=== PATIENT | male | born 1950 | race Caucasian/White ===

== ENCOUNTER 2019-01-07 11:59 | Outpatient (CLI) | payer MEDICARE, OTHER ==
--- NOTE | 2019-01-07 15:08 | XRAY Report ---
Reason: L MIDDLE TOE PAIN Procedure Date: 01/07/2019 Accession Number: [id number] / [id number] Procedure: XR - Toe(s) LT CPT Code: FULL RESULT: EXAM: LEFT THIRD TOE RADIOGRAPHY. EXAM DATE: 01/07/2019 12:05 PM. CLINICAL HISTORY: Left middle toe pain. COMPARISON: None. TECHNIQUE: 3 views. FINDINGS: Bones: There is a fracture of the proximal aspect of the proximal third phalanx with intra-articular extension, essentially nondisplaced. Joints: Normal. No subluxations. Soft Tissues: Normal. No soft tissue swelling. IMPRESSION: Proximal third toe fracture. [facility] The call report notification system was initiated by Dr. Sunil Pierce at 03:02 PM on 01/07/2019. ADDENDUM: 01/07/19 15:57 CRITICAL RESULT: The findings were discussed with Dante Bolanos on 01/07/2019 at 3:57 PM.
== END 2019-01-07 12:00 | disposition home or self-care (01) ==
LOC: DI 11:59
PROVIDERS: ATTEND Physician Assistant
DX: S92.512A Displaced fracture of proximal phalanx of left lesser toe(s), initial encounter for closed fracture (principal)
CPT/HCPCS: 73660

== ENCOUNTER 2019-08-07 11:26 | Outpatient (CLI) | payer MEDICARE, OTHER | END 2019-08-07 11:27 | disposition short-term general hospital (02) | LOC: EMS 11:26 | PROVIDERS: ATTEND Surgery | DX: S99.911A Unspecified injury of right ankle, initial encounter (principal); W01.0XXA Fall on same level from slipping, tripping and stumbling without subsequent striking against object, initial encounter; Y93.02 Activity, running; Y92.007 Garden or yard of unspecified non-institutional (private) residence as the place of occurrence of the external cause | CPT/HCPCS: A0425; A0429; A0888 ==

== ENCOUNTER 2020-01-01 09:35 | Outpatient (CLI) | payer MEDICARE, OTHER ==
--- NOTE | 2020-01-01 16:18 | XRAY Report ---
Reason: COPD, HEART FAILURE Procedure Date: 01/01/2020 Accession Number: [id number] / [id number] Procedure: XR - Chest 2 View X-Ray CPT Code: 07740 Final Report FULL RESULT: EXAM: CHEST RADIOGRAPHY EXAM DATE: 01/01/2020 09:47 AM. CLINICAL HISTORY: COPD, HEART FAILURE. Shortness of breath. COMPARISON: XR CHEST PA AND LAT 03/31/2010 8:34 AM. TECHNIQUE: 2 views. FINDINGS: Lungs/Pleura: No focal opacities evident. No interstitial abnormality or pulmonary vascular congestion. No pleural effusion. No pneumothorax. Normal volumes. Mediastinum: Heart and mediastinal contours are unremarkable. Sternotomy wires revised since 2009. Vessel markers consistent with CABG. Left atrial appendage clip now present. Mild aortic arch calcification. Other: Minimally displaced fractures of the posterolateral right fourth and fifth ribs, new since 2009. Moderate chronic bilateral shoulder arthritis. IMPRESSION: 1. Lungs are clear. 2. Heart size normal. Redo median sternotomy, CABG, left atrial appendage closure, new since 2009. 3. Minimally displaced fractures of the posterior lateral right fourth and fifth ribs, new since 2009. [facility]
== END 2020-01-01 09:36 | disposition home or self-care (01) ==
LOC: DI 09:35
PROVIDERS: ATTEND Internal Medicine
DX: S22.41XA Multiple fractures of ribs, right side, initial encounter for closed fracture (principal); Z95.1 Presence of aortocoronary bypass graft
CPT/HCPCS: 71046

== ENCOUNTER 2021-03-03 08:00 | Outpatient (CLI) | payer MEDICARE, OTHER | END 2021-03-03 23:59 | disposition home or self-care (01) | LOC: LAB.N 08:00 | PROVIDERS: ATTEND Physician Assistant Medical | DX: L02.92 Furuncle, unspecified (principal) | CPT/HCPCS: 87070; 87077; 87181; 87205 ==

== ENCOUNTER 2021-11-21 13:04 | Outpatient (CLI) | payer MEDICARE, OTHER ==
--- NOTE | 2021-11-21 16:32 | XRAY Report ---
PROCEDURE: Lumbar Spine 2 View INDICATIONS: LOW BACK PX TECHNIQUE: 3 views of the lumbar spine were acquired. COMPARISON: None. FINDINGS: Bones: 5 [id number] vertebrae are present. Diffuse osteopenia. Levocurvature of the lumbar spin e with multiple compression deformities and endplate osteophytosis. Facet arthrosis, most prominent a t L4-5. The L5-S1 joint space is maintained. Bilateral hip arthroplasties are seen, partially imaged. Soft tissues: Overlying bowel gas pattern is normal. No suspicious soft tissue calcifications. IMPRESSION: Levocurvature of the lumbar spine, which may reflect degenerative scoliosis with associa yuly multifocal osteoarthrosis. Reviewed by: Josh Mckee MD on 11/21/2021 4:31 PM PDT Approved by: Josh Mckee MD on 11/21/2021 4:31 PM PDT Station ID: [id number]
--- NOTE | 2021-11-21 18:03 | XRAY Report ---
PROCEDURE: Hips 2V BILAT INDICATIONS: R HIP PX TECHNIQUE: 2 views of the right hip and left hip were acquired. COMPARISON: None FINDINGS: Bones: Bilateral hip arthroplasties noted. Orthopedic hardware is in expected position. Orthopedic h ardware is intact lucency noted adjacent to the proximal margin of the femoral component of the right hip arthroplasty. No fractures or dislocations. No suspicious bony lesions. The visualized pelvic ring appears intact. Severe lower lumbar spine degenerative disc changes. Convex left scoliosis of th e visualized lumbar spine. Soft tissues: No suspicious soft tissue calcifications or masses. IMPRESSION: Lucency at the proximal margin of the femoral component of the right hip arthroplasty. Finding could represent loosening or infection. Recommend nuclear medicine bone scan for additional evaluation. Reviewed by: Francine Shepard MD, PhD on 11/21/2021 6:02 PM PDT Approved by: Francine Shepard MD, PhD on 11/21/2021 6:02 PM PDT Station ID: [id number]
== END 2021-11-21 23:59 | disposition home or self-care (01) ==
LOC: DI.N 13:04
PROVIDERS: ATTEND Physician Assistant Medical
DX: M47.816 Spondylosis without myelopathy or radiculopathy, lumbar region (principal); M41.9 Scoliosis, unspecified; Z96.643 Presence of artificial hip joint, bilateral; M25.551 Pain in right hip

== ENCOUNTER 2023-03-15 11:17 | Outpatient (CLI) | payer MEDICARE, OTHER ==
--- NOTE | 2023-03-15 12:59 | XRAY Report ---
PROCEDURE: Chest 2 View X-Ray INDICATIONS: SOB TECHNIQUE: 2 views of the chest were acquired. COMPARISON: Chest x-ray, 01/01/2020. FINDINGS: Surgical changes and devices: Sternotomy and CABG. Lungs and pleura: No pleural effusions or pneumothorax. Lungs are clear. Mediastinum: Mediastinal contours appear normal. Heart size is normal. Bones and chest wall: Old right fourth and fifth rib fractures are noted Bilateral shoulder arthropl asties. No suspicious bony lesions. Overlying soft tissues appear unremarkable. IMPRESSION: No acute cardiopulmonary process. Reviewed by: Mamadou Soto MD on 03/15/2023 12:57 PM PDT Approved by: Mamadou Soto MD on 03/15/2023 12:57 PM PDT Station ID: [id number]
== END 2023-03-15 11:18 | disposition home or self-care (01) ==
LOC: DI 11:17
PROVIDERS: ATTEND Student in an Organized Health Care Education/Training Program
DX: R06.02 Shortness of breath (principal)

== ENCOUNTER 2023-04-19 10:45 | Outpatient (CLI) | payer MEDICARE, OTHER ==
[2023-04-19] MEDS ORDERED: ALBUTEROL 1 PUFF INH STA (12:25)
== END 2023-04-19 10:46 | disposition home or self-care (01) ==
LOC: RT 10:45
PROVIDERS: ATTEND Student in an Organized Health Care Education/Training Program
DX: R06.02 Shortness of breath (principal)
CPT/HCPCS: 94060; 94727; 94729

== ENCOUNTER 2023-05-12 08:00 | Outpatient (CLI) | payer MEDICARE, OTHER | END 2023-05-12 23:59 | disposition home or self-care (01) | LOC: LAB.N 08:00 | PROVIDERS: ATTEND Registered Nurse | DX: R05.1 Acute cough (principal); Z20.822 Contact with and (suspected) exposure to COVID-19 ==

== ENCOUNTER 2023-06-29 19:27 | Emergency (ER) | payer MEDICARE, OTHER ==
[2023-06-29 20:00] LABS: BASOPHILS # (AUTO) 0.1 10^3/uL (0.0-0.1); BASOPHILS % (AUTO) 0.5 %; EOSINOPHILS # (AUTO) 0.1 10^3/uL (0.0-0.7); EOSINOPHILS % (AUTO) 0.7 %; HGB - HEMOGLOBIN 10.3 g/dL (14.0-18.0); LYMPHOCYTES # (AUTO) 0.8 10^3/uL (1.5-3.5); LYMPHOCYTES % (AUTO) 5.1 %; MEAN CORPUSCULAR HGB CONC 31.2 g/dL (32.0-36.0); MEAN CORPUSCULAR VOLUME 86.6 fL (80.0-94.0); MEAN PLATELET VOLUME 10.2 fL (7.4-11.4); MONOCYTES # (AUTO) 0.9 10^3/uL (0.0-1.0); MONOCYTES % (AUTO) 6.1 %; NEUTROPHILS # (AUTO) 13.1 10^3/uL (1.5-6.6); NEUTROPHILS % (AUTO) 86.9 %; PLT - PLATELET COUNT 149 10^3/uL (130-450); RED BLOOD COUNT 3.81 10^6/uL (4.70-6.10); RED CELL DISTRIBUTION WIDTH 14.3 % (12.0-15.0)
[2023-06-29 20:17] LABS: ALBUMIN 3.7 g/dL (3.2-5.5); ALBUMIN/GLOBULIN RATIO 1.1 (1.0-2.2); BILIRUBIN,TOTAL 0.9 mg/dL (0.2-1.0); CALCIUM 9.3 mg/dL (8.5-10.3); CREATININE 0.8 mg/dL (0.6-1.3); POTASSIUM 4.4 mmol/L (3.5-4.5)
--- NOTE | 2023-06-29 20:22 | XRAY Report ---
PROCEDURE: Chest 1 View X-Ray INDICATIONS: Chest pain TECHNIQUE: One view of the chest was acquired. COMPARISON: 05/22/2023 FINDINGS: Surgical changes and devices: Median sternotomy changes. Left atrial occluder device. Bilateral shou lder arthroplasties. Lungs and pleura: Mild right infrahilar mixed interstitial and alveolar opacity. No dense consolidat ion, effusion, or pneumothorax. Mediastinum: Heart is moderately enlarged, similar compared to prior given changes in projection. No rmal aortic contour. No central vascular congestion. Bones and chest wall: Remote, healed right rib fractures. Soft tissues are normal. IMPRESSION: 1. Small right infrahilar alveolar opacity may be infection, inflammation, aspiration, or anemia give n patient's stated history of pulmonary embolus. 2. Cardiomegaly. No radiographic evidence of acute CHF. Reviewed by: Candie Schwartz MD on 06/29/2023 8:20 PM PDT Approved by: Candie Schwartz MD on 06/29/2023 8:20 PM PDT Station ID: [id number]
--- NOTE | 2023-06-29 20:41 | ED Physician Documentation ---
History of Present Illness - Stated complaint Stated Complaint: SOA/FU FROM SCAN - Chief complaint Chief Complaint: Resp - History obtained from History obtained from: Patient, Family () - Additonal information Additional information: 73-year-old man presents sent in after having a scheduled CT a of the chest that showed right-sided pulmonary embolism. Patient has documentation at bedside. He also has been experiencing subjective shortness of breath gradual onset over the past couple days along with nonproductive cough but denies URI symptoms. Patient had echocardiogram 2 weeks ago at [facility] with a EF of 60% and denies leg swelling, pillow orthopnea. +DEGROOT. denies cp PD PAST MEDICAL HISTORY - Past Medical History Cardiovascular: High cholesterol, Coronary artery disease, Arrhythmia, Valve disorder Musculoskeletal: Chronic back pain - Past Surgical History Past Surgical History: Yes Ortho: Hip replacement, Shoulder arthroplasty, Carpal Tunnel surgery Cardiovascular: Valve replacement, Other - Present Medications Home Medications: Ambulatory Orders Medication Instructions Recorded Confirmed Rivaroxaban [Xarelto] 15 mg PO BID #42 tablet 06/29/23 - Allergies Allergies/Adverse Reactions: Allergies Allergy/AdvReac Type Severity Reaction Status Date / Time amiodarone AdvReac Dizziness Verified 06/29/23 19:37 etomidate AdvReac Unknown Verified 06/29/23 19:37 - Social History Does the pt smoke?: No Smoking Status: Never smoker Does the pt drink ETOH?: No Does the pt have substance abuse?: No PD ED PE NORMAL - Vitals Vital signs reviewed: Yes - General General: Alert and oriented X 3, No acute distress, Well developed/nourished - HEENT HEENT: Atraumatic, PERRL, EOMI, Moist mucous membranes, Pharynx benign - Neck Neck: Supple, no meningeal sign - Cardiac Cardiac: RRR - Respiratory Respiratory: No respiratory distress, Clear bilaterally - Abdomen Abdomen: Non tender, Non distended - Derm Derm: Normal color, Warm and dry - Extremities Extremities: No edema - Neuro Neuro: No motor deficit, No sensory deficit Results - Vitals Vitals: Vital Signs - 24 hr 06/29/23 06/29/23 06/29/23 19:33 19:37 20:01 Temperature 36.7 C 36.7 C Heart Rate 79 79 76 Respiratory 26 H 26 H 19 Rate Blood Pressure 123/78 123/78 124/74 O2 Saturation 97 97 92 Oxygen O2 Source Room air - EKG (time done) 1958 EKG releavant findings:: EKG personally interpreted by author of this note. Relevant findings are: Rate: Rate (enter#) (75) Rhythm: NSR (respiratory variation) [place]: Normal Intervals: Normal IN QRS: Poor R wave progression Ischemia: Other (nonspecific changes but no STEMI) Compare to prior EKG: Unchanged from prior EKG (06/01/23 similar ekg) - Labs Labs: Microbiology 06/29/23 21:03 Occult Blood - Final Stool Laboratory Tests 06/29/23 06/29/23 06/29/23 19:45 19:57 19:57 WBC 15.0 H RBC 3.81 L Hgb 10.3 L Hct 33.0 L MCV 86.6 MCH 27.0 MCHC 31.2 L RDW 14.3 Plt Count 149 MPV 10.2 Neut # (Auto) 13.1 H Lymph # (Auto) 0.8 L [place] # (Auto) 0.9 Eos # (Auto) 0.1 Baso # (Auto) 0.1 Absolute Nucleated RBC 0.00 Nucleated RBC % 0.0 Sodium 134 L Potassium 4.4 Chloride 100 L Carbon Dioxide 27 Anion Gap 7.0 BUN 23 H Creatinine 0.8 Estimated GFR (MDRD) 94 Glucose 143 H Calcium 9.3 Total Bilirubin 0.9 AST 19 ALT 23 Alkaline Phosphatase 143 H Troponin I High Sens 10.5 B-Natriuretic Peptide 603 H Total Protein 7.0 Albumin 3.7 Globulin 3.3 Albumin/Globulin Ratio 1.1 Lipase 12 PD Medical Decision Making - ED course ED course: 73yM presents with soa X couple days with CT outpatient diagnosing R sided PE. PESI score here is 85 (class II, low risk) due to age and gender. Plan to administer first dose of anticoagulant here and have him follow up outpatient for echocardiogram and further management with CT surgeon and pulmonology. return precautions given. Departure - Departure Disposition: 01 Home, Self Care Clinical Impression: Pulmonary embolism Condition: Stable Instructions: Embolism Pulmonary Dc Prescriptions: Rivaroxaban [Xarelto] 15 mg PO BID #42 tablet Comments: You were seen in the emergency department for Pulmonary embolism. I am prescribing Xarelto 15 mg twice daily with meals for 3 weeks. After this she will need to get a new prescription for 20 mg once daily with food thereafter. Please follow-up with your cardiothoracic specialist as well as pulmonology and return to the emergency department if you have any new or worsening symptoms or other concerns. Forms: PCP List
[2023-06-29 20:53] LABS: TROPONIN I HIGH SENSITIVITY 10.5 ng/L (2.3-19.7)
[2023-06-29] MEDS ORDERED: ENOXAPARIN 80 MG/0.8 ML SYRINGE SUBQ STA (21:58)
[2023-06-29 22:13] VITALS: BP 120/72; O2SAT 94
== END 2023-06-29 22:12 | disposition home or self-care (01) ==
LOC: ED 19:27
DX: I26.99 Other pulmonary embolism without acute cor pulmonale (principal)
CPT/HCPCS: 36415; 71045; 80053; 82272; 83690; 83880; 84484; 85025; 93005; 96372; 99284; J1650; 82270; 82274

== ENCOUNTER 2023-07-16 11:52 | Emergency (ER) | payer MEDICARE, OTHER ==
[2023-07-16 12:44] LABS: BASOPHILS # (AUTO) 0.1 10^3/uL (0.0-0.1); BASOPHILS % (AUTO) 0.4 %; EOSINOPHILS % (AUTO) 0.1 %; HCT - HEMATOCRIT 30.9 % (42.0-52.0); HGB - HEMOGLOBIN 9.4 g/dL (14.0-18.0); LYMPHOCYTES # (AUTO) 0.6 10^3/uL (1.5-3.5); LYMPHOCYTES % (AUTO) 4.5 %; MEAN CORPUSCULAR HEMOGLOBIN 25.9 pg (27.0-31.0); MEAN CORPUSCULAR HGB CONC 30.4 g/dL (32.0-36.0); MEAN CORPUSCULAR VOLUME 85.1 fL (80.0-94.0); MEAN PLATELET VOLUME 9.5 fL (7.4-11.4); MONOCYTES # (AUTO) 0.6 10^3/uL (0.0-1.0); MONOCYTES % (AUTO) 4.4 %; NEUTROPHILS # (AUTO) 12.8 10^3/uL (1.5-6.6); NEUTROPHILS % (AUTO) 89.6 %; PLT - PLATELET COUNT 197 10^3/uL (130-450); RED BLOOD COUNT 3.63 10^6/uL (4.70-6.10); RED CELL DISTRIBUTION WIDTH 15.9 % (12.0-15.0); WHITE BLOOD COUNT 14.2 x10^3/uL (4.8-10.8)
[2023-07-16 12:55] LABS: INR 3.6 (0.8-1.2); PT - PROTHROMBIN TIME 36.7 secs (9.9-12.6)
--- NOTE | 2023-07-16 13:11 | XRAY Report ---
PROCEDURE: Chest 1 View X-Ray INDICATIONS: dyspnea TECHNIQUE: One view of the chest was acquired. COMPARISON: Chest x-ray 06/29/2023 FINDINGS: Surgical changes and devices: Bilateral shoulder arthroplasty and sternal wires. Lungs and pleura: Interval development of moderate right effusion. Linear opacities are present in t he right base. Mild increased pulmonary vascularity. Mediastinum: Mediastinal contours appear normal. Heart size is enlarged. Bones and chest wall: No suspicious bony lesions. Overlying soft tissues appear unremarkable. IMPRESSION: Moderate effusion with increased vascular suggestive of edema. Underlying areas of pneumonia or other mass lesion cannot be excluded. Recommend interval follow-up to document resolution. Linear opacity is present likely atelectasis. Reviewed by: Romina Montoya MD on 07/16/2023 1:10 PM [facility] Approved by: Romina Montoya MD on 07/16/2023 1:10 PM [facility] Station ID: [id number]
[2023-07-16 13:15] LABS: ALBUMIN 3.1 g/dL (3.2-5.5); ALBUMIN/GLOBULIN RATIO 0.9 (1.0-2.2); BILIRUBIN,TOTAL 1.7 mg/dL (0.2-1.0); CALCIUM 8.8 mg/dL (8.5-10.3); CREATININE 0.7 mg/dL (0.6-1.3); PHOSPHORUS 3.1 mg/dL (2.5-5.0); POTASSIUM 4.1 mmol/L (3.5-4.5); TOTAL PROTEIN 6.5 g/dL (6.4-8.9)
[2023-07-16] MEDS: MORPHINE 2 MG/ML CARPUJECT IVP STA (13:33)
--- NOTE | 2023-07-16 14:17 | ED Physician Documentation ---
PD HPI DYSPNEA - Stated complaint Stated Complaint: SOA - Chief complaint Chief Complaint: Resp - History obtained from History obtained from: Patient, Family, Other (Dr. 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 Patient developed difficulty with breathing in April 2023, he was seen by cardiology, underwent PFTs that were unremarkable. Patient subsequently underwent cardiac work-up including right and left heart cath, echocardiogram. CT revealed right lower lobe PE on 06/29 and he was started on anticoagulation. Today the hospice doctor Dr. Ku evaluated the patient, he was found to be hypoxic on his usual 3 L oxygen and he was increased to 5 L oxygen. He was also complaining of back pain and worsening shortness of breath with movement. Patient elected to remove his hospice status in order to be evaluated in the hospital today. Review of Systems Constitutional: denies: Fever, Chills Cardiac: denies: Chest pain / pressure, Palpitations, Calf pain Respiratory: reports: Dyspnea. denies: Cough, Wheezing GI: denies: Abdominal Pain, Nausea, Vomiting : denies: Dysuria, Frequency, Hesitancy PD PAST MEDICAL HISTORY - Past Medical History Cardiovascular: High cholesterol, Coronary artery disease, Arrhythmia, Valve disorder Musculoskeletal: Chronic back pain - Past Surgical History Past Surgical History: Yes Ortho: Hip replacement, Shoulder arthroplasty, Carpal Tunnel surgery Cardiovascular: Valve replacement, Other - Present Medications Home Medications: Ambulatory Orders Medication Instructions Recorded Confirmed Amox/Clav 875/125 [Augmentin] 1 each PO Q12H #10 tablet 07/16/23 Digoxin [Lanoxin] 125 mcg PO ONCE 07/16/23 07/16/23 Dofetilide [Tikosyn] 500 mcg PO DAILY 07/16/23 07/16/23 Doxycycline Hyclate 100 mg PO BID #10 cap 07/16/23 - Allergies Allergies/Adverse Reactions: Allergies Allergy/AdvReac Type Severity Reaction Status Date / Time amiodarone AdvReac Dizziness Verified 06/29/23 19:37 etomidate AdvReac Unknown Verified 06/29/23 19:37 - Social History Does the pt smoke?: No Smoking Status: Never smoker Does the pt drink ETOH?: No Does the pt have substance abuse?: No PD ED PE NORMAL - Vitals Vital signs reviewed: Yes - General General: Alert and oriented X 3, Other (Appears chronically unwell, mild r espiratory distress) - HEENT HEENT: Atraumatic - Neck Neck: Supple, no meningeal sign - Cardiac Cardiac: RRR, Strong equal pulses - Respiratory Respiratory: Other (Mild respiratory distress, pursed lip breathing, on supplemental oxygen, decreased breath sounds right side) - Derm Derm: Normal color, Warm and dry, No rash - Extremities Extremities: No deformity, No tenderness to palpate, Normal ROM s pain - Neuro Neuro: Alert and oriented X 3, soap chipper 2-12 intact, Normal speech - Psych Psych: Normal mood Results - Vitals Vitals: Vital Signs - 24 hr 07/16/23 07/16/23 07/16/23 11:58 14:02 16:00 Temperature 36 C L Heart Rate 119 H 85 89 Respiratory 30 H 14 16 Rate Blood Pressure 147/82 H 108/82 H 109/86 H O2 Saturation 98 98 96 If not protocol 5 5 : Oxygen Flow, liters/minute 07/16/23 17:00 Temperature Heart Rate 83 Respiratory 16 Rate Blood Pressure 108/79 O2 Saturation 100 If not protocol 5 : Oxygen Flow, liters/minute Oxygen O2 Source Nasal cannula Oxygen Flow Rate 5 - Labs Labs: Laboratory Tests 07/16/23 07/16/23 07/16/23 12:39 12:39 12:39 WBC 14.2 H RBC 3.63 L Hgb 9.4 L Hct 30.9 L MCV 85.1 MCH 25.9 L MCHC 30.4 L RDW 15.9 H Plt Count 197 MPV 9.5 Neut # (Auto) 12.8 H Lymph # (Auto) 0.6 L [place] # (Auto) 0.6 Eos # (Auto) 0.0 Baso # (Auto) 0.1 Absolute Nucleated RBC 0.00 Nucleated RBC % 0.0 PT 36.7 H INR 3.6 H Sodium 129 L Potassium 4.1 Chloride 92 L Carbon Dioxide 30 Anion Gap 7.0 BUN 16 Creatinine 0.7 Estimated GFR (MDRD) 110 Glucose 120 H Calcium 8.8 Phosphorus 3.1 Magnesium 2.0 Total Bilirubin 1.7 H AST 35 ALT 39 Alkaline Phosphatase 153 H Total Protein 6.5 Albumin 3.1 L Globulin 3.4 Albumin/Globulin Ratio 0.9 L Lipase 23 Urine Color Urine Clarity Urine pH Ur Specific [place] Urine Protein Urine Glucose (UA) Urine Ketones Urine Occult Blood Urine Nitrite Urine Bilirubin Urine Urobilinogen Ur Leukocyte Esterase Urine RBC Urine WBC Ur Squamous Epith Cells Urine Bacteria Urine Mucus Ur Microscopic Review Urine Culture Comments 07/16/23 16:10 WBC RBC Hgb Hct MCV MCH MCHC RDW Plt Count MPV Neut # (Auto) Lymph # (Auto) [place] # (Auto) Eos # (Auto) Baso # (Auto) Absolute Nucleated RBC Nucleated RBC % PT INR Sodium Potassium Chloride Carbon Dioxide Anion Gap BUN Creatinine Estimated GFR (MDRD) Glucose Calcium Phosphorus Magnesium Total Bilirubin AST ALT Alkaline Phosphatase Total Protein Albumin Globulin Albumin/Globulin Ratio Lipase Urine Color YELLOW Urine Clarity HAZY Urine pH 7.5 Ur Specific [place] 1.010 Urine Protein TRACE Urine Glucose (UA) NEGATIVE Urine Ketones NEGATIVE Urine Occult Blood NEGATIVE Urine Nitrite NEGATIVE Urine Bilirubin NEGATIVE Urine Urobilinogen 1 (NORMAL) Ur Leukocyte Esterase NEGATIVE Urine RBC 0-5 Urine WBC 0-3 Ur Squamous Epith Cells RARE Squamous Urine Bacteria Rare Urine Mucus Few Strands Ur Microscopic Review INDICATED Urine Culture Comments NOT INDICATED PD Medical Decision Making - ED course Complexity details: reviewed old records, reviewed results, re-evaluated patient, considered differential, d/w patient, d/w family, d/w bi consultant ED course: Patient previously on hospice presenting for back pain as well as worsening shortness of breath. He is having to increase his oxygen to 5 L in order to maintain his saturations as well as a chief comfort. Patient Dr. Ku is concerned there may be a metastatic lesion somewhere, in addition with patient's recent history of pulmonary embolism will order CT angio of the chest as well as CT of the abdomen and pelvis. Laboratory work is reviewed, hyponatremia seen. INR is elevated despite patient taking Eliquis. Chest x-ray shows moderate right-sided pleural effusion. CT angio of the chest as well as CT of the abdomen and pelvis are significant for a moderate right-sided pleural effusion. There is underlying right-sided consolidative lesion, cannot rule out pneumonia based on presentation and clinical picture. Discussed with Dr. Ku, due to patient's elevated INR he is not a candidate for thoracentesis here, however it may be of palliative benefit in the future. She will discuss possibility of thoracentesis in the future with the patient and his . She also recommended that the patient be empirically treated with antibiotics since pneumonia cannot be ruled out and may provide some therapeutic benefit to the patient. Discussed lab, imaging, Dr. Ku recommendations with the patient and the . They are in agreement w ith plan and will call Dr. Ku tomorrow for follow-up. Departure - Departure Disposition: Home, Self Care Clinical Impression: Pneumonia, Pleural effusion Condition: Stable Instructions: Pneumonia Dc Prescriptions: Amox/Clav 875/125 [Augmentin] 1 each PO Q12H #10 tablet Doxycycline Hyclate 100 mg PO BID #10 cap Comments: [facility] SENT [facility] Forms: PCP List Discharge Date/Time: 07/16/23 17:19
[2023-07-16] MEDS: iohexoL-300 100 ML VIAL IVP ONE (15:30)
--- NOTE | 2023-07-16 15:41 | CT Report ---
PROCEDURE: ANGIO CHEST W/WO INDICATIONS: WORSENING DYSPNEA, HX OF PE CONTRAST: 100mL Omni 300 TECHNIQUE: After the administration of intravenous contrast, 2 mm axial images were acquired from the pulmonary apices to the posterior costophrenic angles during the arterial phase. In addition, 1 mm lung kernel and 5 mm soft tissue kernel reconstructions were performed. 3-dimensional coronal oblique maximum int ensity projection (MIP) reformats, 8 mm axial MIP, and 5 mm coronal and sagittal MPR reformats were t hen performed through the thorax. For radiation dose reduction, the following was used: automated exp osure control, adjustment of mA and/or kV according to patient size. COMPARISON: CT pulmonary angiogram 06/01/2023. FINDINGS: Image quality: Excellent. Large vessels: No filling defects within the opacified pulmonary arteries, accounting for motion and contrast timing. No evidence of acute aortic syndrome or aortic aneurysm. Lungs and pleura: Scattered opacity in the right lung. Airways are clear. Moderate right pleural effu ceci, increased. Trace left pleural fluid. No pneumothorax. No suspicious pulmonary nodules which req uire follow up. Mediastinum: Post median sternotomy. Heart size is normal. Aortic valve replacement. No pericardial e ffusion. Ascending aortic aneurysm measuring approximately 5.3 cm (), unchanged. No mediastinal a denopathy by size criteria. Chest wall and lower neck: Thyroid is unremarkable. No axillary or supraclavicular adenopathy by size . Bones: No aggressive osseous abnormality. Scoliosis. Bilateral shoulder arthroplasties. Upper Abdomen: Unremarkable. IMPRESSION: 1. No pulmonary embolism. 2. Moderate right pleural effusion, increased. 3. Scattered opacity in the right lung. This could represent compressive atelectasis. Difficult to ex clude pneumonia. 4. Ascending aortic aneurysm measuring approximately 5.3 cm. Prior aortic valve replacement. Reviewed by: Lam Lane MD on 07/16/2023 3:40 PM PST Approved by: Lam Lane MD on 07/16/2023 3:40 PM PST Station ID: [id number]
--- NOTE | 2023-07-16 15:50 | CT Report ---
PROCEDURE: ABDOMEN/PELVIS W INDICATIONS: BILAT FLANK PAIN CONTRAST: 100mL Omni 300 TECHNIQUE: After the administration of IV contrast, 5 mm thick sections acquired from the diaphragms to the symp hysis. 5 mm thick coronal and sagittal reformats were acquired. For radiation dose reduction, the f ollowing was used: automated exposure control, adjustment of mA and/or kV according to patient size. COMPARISON: CT chest 07/16/2023. FINDINGS: Image quality: There is limited visualization of the pelvis secondary to artifact from hip arthroplas ties. Lung bases and heart: Moderate right effusion with superimposed consolidative changes. Liver: Simple hepatic cyst is present in the left lobe. Liver is enlarged measuring 20.0 cm with stea tosis. Gallbladder and biliary tree: No stones. Spleen: Spleen is prominent measuring 14.5 cm. Pancreas: No pancreatic ductal dilation. Adrenals: No adrenal nodule. Kidneys and ureters: No hydronephrosis. No renal cystic lesion which requires follow up. No solid mas s. Multiple bilateral simple renal cysts. Punctate nonobstructing right inferior pole calcification. Bowel and peritoneum: No bowel distension. No pathologic free fluid. Lymph nodes: No central or retroperitoneal adenopathy. Vessels: No infrarenal aortic aneurysm. PELVIS Reproductive organs: Unremarkable. Bladder: No abnormal wall thickening, accounting for underdistension. Bladder is distended. Pelvic lymph nodes: No pelvic adenopathy by size criteria. Bones: No aggressive osseous abnormality. Leftward scoliotic curvature. Other: No significant ventral or inguinal hernia. IMPRESSION: Moderate right effusion with superimposed consolidative changes. Please see separately dictated CT ch est report for further details. No acute intra-abdominal or pelvic process. Reviewed by: Romina Montoya MD on 07/16/2023 3:48 PM PST Approved by: Romina Montoya MD on 07/16/2023 3:48 PM PST Station ID: [id number]
[2023-07-16 16:27] LABS: BILIRUBIN,URINE NEGATIVE (NEGATIVE); CLARITY,URINE HAZY (CLEAR); GLUCOSE, URINE (UA) NEGATIVE (NEGATIVE); KETONES,URINE (UA) NEGATIVE (NEGATIVE); LEUKOCYTE ESTERASE, URINE NEGATIVE (NEGATIVE); NITRITE,URINE NEGATIVE (NEGATIVE); OCCULT BLOOD,URINE NEGATIVE (NEGATIVE); PH,URINE 7.5 PH (5.0-7.5); PROTEIN,URINE TRACE mg/dL (NEGATIVE); UROBILINOGEN,URINE 1 (NORMAL) E.U./dL (NORMAL)
[2023-07-16 16:34] LABS: BACTERIA,URINE Rare /HPF (None Seen); MUCUS,URINE Few Strands; RBC,URINE 0-5 /HPF (0-5); SQUAMOUS EPITHELIAL CELL,UR RARE Squamous (<= Few); WBC,URINE 0-3 /HPF (0-3)
[2023-07-16 17:25] VITALS: BP 108/79; O2SAT 100
== END 2023-07-16 17:19 | disposition home or self-care (01) ==
LOC: ED 11:52
DX: J18.9 Pneumonia, unspecified organism (principal); J91.8 Pleural effusion in other conditions classified elsewhere; E78.00 Pure hypercholesterolemia, unspecified; I25.10 Atherosclerotic heart disease of native coronary artery without angina pectoris; Z79.01 Long term (current) use of anticoagulants; Z79.899 Other long term (current) drug therapy; Z99.81 Dependence on supplemental oxygen
CPT/HCPCS: 36415; 80053; 81001; 81003; 83690; 83735; 84100; 85025; 85610; 87086; 93005; 96374; 99284

== ENCOUNTER 2023-07-20 10:14 | Outpatient (CLI) | payer MEDICARE, OTHER ==
--- NOTE | 2023-07-20 15:56 | XRAY Report ---
PROCEDURE: Post Thoracentesis 1V CXR INDICATIONS: Post Thoracentesis for Pleural Effusion TECHNIQUE: One view of the chest was acquired. COMPARISON: Chest radiograph 07/16/2023. FINDINGS: Surgical changes and devices: Median sternotomy wire. Left atrial occluder device. Bilateral shoulde r arthroplasties. Lungs and pleura: Moderate right pleural effusion with subjacent atelectasis. No pneumothorax. Mediastinum: Mediastinal contours appear normal. Heart size is normal. Aortic arch is calcified ind icating atherosclerosis. Bones and chest wall: No suspicious bony lesions. Overlying soft tissues appear unremarkable. IMPRESSION: No pneumothorax status post thoracentesis. Reviewed by: Suzy Finnegan MD on 07/20/2023 3:54 PM PST Approved by: Suzy Finnegan MD on 07/20/2023 3:54 PM PST Station ID: [id number]
--- NOTE | 2023-07-20 16:47 | Ultrasound Report ---
PROCEDURE: Thoracentesis Puncture INDICATIONS: PLEURAL EFFUSION TECHNIQUE: The indications, alternatives, benefits, risks, and complications of the procedure were explained to the patient. Written informed consent was obtained and placed in the chart. The chest was examined sonographically, and an appropriate site was chosen for thoracentesis. The skin was prepared and helga ped in the usual sterile fashion, and 1% lidocaine was infiltrated from the skin down through the ple ural surface. A 19-gauge catheter-covered needle was then introduced into the pleural space, the cat heter was advanced and the needle was withdrawn, and thereafter pleural fluid was aspirated. The cat heter was then removed and a dressing was applied. COMPARISON: CT chest angiogram 07/16/2023. FINDINGS: Access site: Right hemithorax. Needle: One-Step centesis catheter with introducer needle. Fluid volume and description: Right pleural effusion is loculated. Attempt to drain largest fluid po cket was performed with drainage of approximately 20 cc of serosanguineous fluid. Fluid sent for diagnostic testing: None. Therapeutic only Medications: 1% lidocaine for local anaesthesia. Complications: None; post-procedural chest radiograph is pending to assess for pneumothorax. IMPRESSION: Markedly loculated right pleural effusion. Scant volume of fluid was removed without com plication. Reviewed by: Suzy Finnegan MD on 07/20/2023 4:45 PM PST Approved by: Suzy Finnegan MD on 07/20/2023 4:45 PM PST Station ID: [id number]
== END 2023-07-20 10:15 | disposition home or self-care (01) ==
LOC: DI 10:14
PROVIDERS: ATTEND Family Medicine
DX: J91.8 Pleural effusion in other conditions classified elsewhere (principal)
CPT/HCPCS: 32555